=== PATIENT | female | born 1985 | race Caucasian/White ===

== ENCOUNTER 2020-03-30 10:49 | Outpatient (REF) | payer OTHER, SELFPAY ==
[2020-03-30 14:40] LABS: Anion Gap 12 (12-20); Blood Urea Nitrogen 13 mg/dL (9-16); Calcium 9.2 mg/dL (8.4-10.2); Carbon Dioxide 26 mmol/L (22-29); Chloride 106 mmol/L (96-108); Estimated Glomerular Filt Rate > 60; Glucose Random 72 mg/dL (60-115); Potassium 4.2 mmol/l (3.3-5.1); Sodium 140 mmol/L (135-145)
== END 2020-03-30 10:50 | disposition home or self-care (01) ==
LOC: HO.HMGCLDS 10:49
PROVIDERS: PCP Nurse Practitioner Family; Visit Provider Nurse Practitioner Family
DX: Z02.0 Encounter for examination for admission to educational institution (principal)
CPT/HCPCS: 80048; 86481

== ENCOUNTER 2020-04-05 11:22 | Outpatient (REF) | payer OTHER, SELFPAY | END 2020-04-05 11:23 | disposition home or self-care (01) | LOC: HO.LAB 11:22 | PROVIDERS: Visit Provider Nurse Practitioner Family | DX: Z11.1 Encounter for screening for respiratory tuberculosis (principal) | CPT/HCPCS: 86481 ==

== ENCOUNTER → 2020-04-19 08:43 | Outpatient (BNVA) | payer OTHER, SELFPAY | PROVIDERS: PCP Nurse Practitioner Family; Visit Provider Obstetrics & Gynecology | DX: Z76.89 Persons encountering health services in other specified circumstances (principal) ==

== ENCOUNTER 2020-09-11 08:11 | Outpatient (REF) | payer OTHER, SELFPAY ==
[2020-09-11 16:09] LABS: CT PCR NOT DETECTED (Not Detect.); NG PCR NOT DETECTED (Not Detect.)
[2020-09-12 09:23] LABS: BV Int Neg Control Negative (Negative); BV Int Pos Control Positive (Positive)
== END 2020-09-11 08:12 | disposition home or self-care (01) ==
LOC: HO.LAB 08:11
PROVIDERS: PCP Nurse Practitioner Family; Visit Provider Obstetrics & Gynecology
DX: Z30.09 Encounter for other general counseling and advice on contraception (principal); N76.0 Acute vaginitis
CPT/HCPCS: 87480; 87491; 87510; 87591; 87660

== ENCOUNTER 2020-09-27 14:50 | Outpatient (REF) | payer OTHER, SELFPAY | END 2020-09-27 14:51 | disposition home or self-care (01) | LOC: HO.LAB 14:50 | PROVIDERS: PCP Nurse Practitioner Family; Visit Provider Surgery | DX: L82.1 Other seborrheic keratosis (principal) | CPT/HCPCS: 11441; 11641; 88305 ==

== ENCOUNTER → 2020-10-16 14:36 | Outpatient (BNVA) | payer OTHER, SELFPAY | PROVIDERS: PCP Nurse Practitioner Family; Visit Provider Obstetrics & Gynecology ==

== ENCOUNTER 2020-11-02 09:21 | Outpatient (REF) | payer OTHER, SELFPAY ==
[2020-11-02 11:13] LABS: MANUAL DIFF FLAG NO
[2020-11-02 11:24] LABS: Basophils Percent Auto 0.6 % (0-2); Eosinophils Absolute Auto 0.1 X10*3/uL (0.0-0.4); Eosinophils Percent Auto 1.2 % (0-4); Hematocrit 39.4 % (37-47); Hemoglobin 13.2 g/dl (12.0-16.0); Imm Gran Abs Auto 0.01 X10*3/uL (0.00-0.03); Imm Gran Pct Auto 0.2 % (0.0-0.4); Lymphocytes Absolute Auto 1.7 X10*3/uL (1.2-4.9); Lymphocytes Percent Auto 33.6 % (20-40); Mean Corpuscular HGB Conc 33.5 g/dl (31.0-35.0); Mean Corpuscular Hemoglobin 30.6 pg (27.0-33.0); Mean Corpuscular Volume 91.4 fL (80-98); Mean Platelet Volume 10.9 fL (9.4-12.3); Monocytes Absolute Auto 0.4 X10*3/uL (0.1-1.2); Monocytes Percent Auto 7.1 % (2-11); Neutrophils Absolute Auto 2.8 X10*3/uL (2.0-8.3); Neutrophils Percent Auto 57.3 % (45-73); Platelet Count 364 X10*3/uL (160-400); Red Blood Count 4.31 X10*6/uL (4.20-5.50); Red Cell Distribution Width 12.4 % (11.0-16.0); White Blood Count 4.9 X10*3/uL (4.8-10.8)
[2020-11-02 12:00] LABS: TSH reflex Free T4 1.08 uIU/mL (0.32-4.0)
[2020-11-02 12:03] LABS: Alanine Aminotransferase 14 U/L (0-31); Albumin Level 4.2 g/dL (3.5-5.0); Alkaline Phosphatase 65 U/L (39-117); Anion Gap 10 (12-20); Aspartate Amino Transferase 13 U/L (5-31); Bilirubin Total 0.4 mg/dL (0.0-1.0); Blood Urea Nitrogen 13 mg/dL (9-16); Calcium 9.3 mg/dL (8.4-10.2); Carbon Dioxide 27 mmol/L (22-29); Chloride 107 mmol/L (96-108); Estimated Glomerular Filt Rate > 60; Glucose Fasting 83 mg/dL (60-99); Potassium 4.6 mmol/L (3.3-5.1); Sodium 139 mmol/L (135-145)
[2020-11-02 12:20] LABS: Folate 7.4 ng/mL (> or = 4.0); Vitamin B12 598 pg/mL (200-900)
[2020-11-06 12:22] LABS: Vitamin D 25-OH, D2 7 ng/mL; Vitamin D 25-OH, D3 19 ng/mL; Vitamin D 25-OH, Total 26 ng/mL (30-100)
== END 2020-11-02 09:22 | disposition home or self-care (01) ==
LOC: HO.HMGCLDS 09:21
PROVIDERS: PCP Nurse Practitioner Family; Visit Provider Hospitalist
DX: R20.2 Paresthesia of skin (principal)
CPT/HCPCS: 36415; 80053; 82306; 82607; 82746; 84443; 85025

== ENCOUNTER 2020-11-21 13:00 | Outpatient (REF) | payer OTHER, SELFPAY ==
--- NOTE | ~2020-11-21 | US_ITS ---
EXAMINATION: US ABDOMEN LIMITED CLINICAL INFORMATION: Localized swelling, mass and lump, trunk. COMPARISON: None TECHNIQUE: Real-time imaging of the left upper quadrant. FINDINGS: Limited sonogram of the superficial soft tissues of the left upper quadrant demonstrates a well-positioned vein lobule measuring 1.9 x 0.9 x 2.8 cm. No cystic or solid masses. No areas of airspace edema. No fluid collections. US/US abdomen limited IMPRESSION: Possible hernia versus lipoma in the left upper quadrant, consider further evaluation with CT of the abdomen.
== END 2020-11-21 13:01 | disposition home or self-care (01) ==
LOC: HO.US 13:00
PROVIDERS: Visit Provider Hospitalist
DX: R22.2 Localized swelling, mass and lump, trunk (principal)
CPT/HCPCS: 76705

== ENCOUNTER 2021-03-05 10:10 | Outpatient (REF) | payer OTHER, SELFPAY ==
[2021-03-05 11:33] LABS: Alanine Aminotransferase 11 U/L (0-31); Albumin Level 4.5 g/dL (3.5-5.0); Alkaline Phosphatase 70 U/L (39-117); Anion Gap 13 (12-20); Aspartate Amino Transferase 17 U/L (5-31); Bilirubin Total 0.9 mg/dL (0.0-1.0); Blood Urea Nitrogen 9 mg/dL (9-16); Calcium 9.7 mg/dL (8.4-10.2); Carbon Dioxide 23 mmol/L (22-29); Chloride 107 mmol/L (96-108); Cholesterol 175 mg/dL; Estimated Glomerular Filt Rate > 60; Glucose Fasting 91 mg/dL (60-99); HDL Cholesterol 53 mg/dL; LDL Cholesterol Calculated 112 mg/dl; Potassium 4.5 mmol/L (3.3-5.1); Sodium 138 mmol/L (135-145); Total Protein 7.4 g/dL (6.5-8.0); Triglycerides 51 mg/dL
[2021-03-05 12:00] LABS: TSH reflex Free T4 1.07 uIU/mL (0.32-4.0)
[2021-03-05 13:02] LABS: Appearance Urine CLEAR; Color Urine YELLOW; Glucose Urine UA NEG (NEG); Leukocyte Esterase Urine NEG (NEG); Nitrite Urine NEG (NEG); Urine Blood NEG (NEG); Urine Ketones NEG (NEG); Urine Protein NEG (NEG-TRACE)
[2021-03-08 16:51] LABS: TS Negative Control Passed; TS Panel A 0; TS Panel B 1; TS Positive Control Passed; TSpotTB Negative (SeeBelow)
== END 2021-03-05 10:11 | disposition home or self-care (01) ==
LOC: HO.LAB 10:10
PROVIDERS: Visit Provider Nurse Practitioner Family
DX: Z00.00 Encounter for general adult medical examination without abnormal findings (principal); Z11.1 Encounter for screening for respiratory tuberculosis
CPT/HCPCS: 36415; 80053; 80061; 81003; 84443; 86481

== ENCOUNTER 2021-03-26 07:55 | Outpatient (REF) | payer OTHER, SELFPAY ==
--- NOTE | ~2021-03-26 | CT_ITS ---
EXAMINATION: CT ABDOMEN AND PELVIS WITH CONTRAST CLINICAL INFORMATION: Localized swelling, mass or left upper quadrant. Question lipoma versus hernia. COMPARISON: Abdominal ultrasound November 2020 TECHNIQUE: Multidetector volumetric images were obtained from the superior aspect of the liver through the pubic symphysis following administration 85 mL of Omnipaque 350 intravenous contrast. Sagittal and coronal reformatted images were obtained on the technologist's workstation. Oral contrast: Yes This CT examination was performed using dose optimization techniques as appropriate, variously including the following: *Automated exposure control *Adjustment of mA and/or kV according to patient size (this includes techniques or standardized protocols for targeted exams where dose is matched to indication/reason for exam; i.e. extremities or head) *Use of iterative reconstruction technique DLP: 578 mGy-cm FINDINGS: LUNG BASES: The visualized lung bases are unremarkable. LIVER, GALLBLADDER, AND BILIARY TREE: The liver is normal in size, shape, and attenuation. There is a small 4 mm low-attenuation lesion high in the right lobe of the liver axial image 18 series 3. This is difficult to characterize due to small size but may represent a cyst. No biliary ductal dilatation is present. The gallbladder is unremarkable with no evidence of radiopaque gallstones, gallbladder wall thickening, or obvious pericholecystic inflammatory changes. PANCREAS: Unremarkable. SPLEEN: Unremarkable. ADRENAL GLANDS: Unremarkable. KIDNEYS AND URETERS: The kidneys are normal in size, shape, and attenuation. No hydronephrosis, hydroureter, or calculi seen. No perinephric stranding. BLADDER: Unremarkable. GASTROINTESTINAL TRACT: The small and large bowel are unremarkable. The appendix is not seen. ABDOMINAL WALL: No significant hernia is appreciated. No abdominal wall mass or fluid collection is seen. LYMPH NODES: Normal. VASCULAR: Unremarkable. PELVIC VISCERA: Unremarkable. OSSEOUS STRUCTURES: There is thoracolumbar scoliosis. CT/CT abdomen pelvis w con IMPRESSION: No abdominal wall mass or hernia is seen. Probable small liver cyst.
== END 2021-03-26 07:56 | disposition home or self-care (01) ==
LOC: HO.CT 07:55
PROVIDERS: Visit Provider Nurse Practitioner Family
DX: R19.02 Left upper quadrant abdominal swelling, mass and lump (principal); M41.85 Other forms of scoliosis, thoracolumbar region
CPT/HCPCS: 74177; Q9967

== ENCOUNTER → 2021-04-04 09:14 | Outpatient (REF) | payer OTHER, SELFPAY ==
--- NOTE | 2021-04-04 09:18 | HM_ITS ---
Conclusion: 1. Patient was monitored for total period of 3 days and 8 hours. 2. Baseline of normal sinus rhythm with average heart of 73 beats per minute 3. No significant bradycardia pauses noted 4. Total of 5 isolated PVCs occurred for very rare PVCs 5. No patient reported events MTDD
--- NOTE | 2021-04-04 09:18 | CA_ITS ---
Acquisition Time: 2021-04-04 09:19:44 Total Exercise Time: 00:09:15 Test Indications: CP Medications: SEE CHART Protocol: BERTHA Max HR: 179 BPM 96% of Pred: 186 BPM Max BP: 142/082 mmHG Max Work Load: 10.4 METS Exercise stress test with exercise 9 min 15 sec of Bertha protocol, without anginal symptoms, without arrythmia, with normotensive response to exercise, without EKG changes meeting criteria for ischemia. Test reviewed with Dr Ramachandran. Referred By: Ridge Saavedra Overread By: LAMINE GUTIERREZ
== END ==
LOC: HO.CARD 09:14
PROVIDERS: PCP Nurse Practitioner Family; Visit Provider Nurse Practitioner Family
DX: R07.89 Other chest pain (principal)
CPT/HCPCS: 93017; 93242

== ENCOUNTER 2022-02-11 15:59 | Outpatient (REF) | payer OTHER, SELFPAY | END 2022-02-11 16:00 | disposition home or self-care (01) | LOC: HO.LAB 15:59 | PROVIDERS: PCP Nurse Practitioner Family; Visit Provider Internal Medicine Gastroenterology | DX: K21.9 Gastro-esophageal reflux disease without esophagitis (principal) | CPT/HCPCS: 36415; 86003 ==

== ENCOUNTER 2022-02-20 14:35 | Outpatient (REF) | payer OTHER, SELFPAY ==
[2022-02-21 14:04] LABS: H Pylori Breath Test Negative (Negative)
== END 2022-02-20 14:36 | disposition home or self-care (01) ==
LOC: HO.LNP 14:35
PROVIDERS: Visit Provider Internal Medicine Gastroenterology
DX: K21.9 Gastro-esophageal reflux disease without esophagitis (principal); Z11.0 Encounter for screening for intestinal infectious diseases
CPT/HCPCS: 83013

== ENCOUNTER 2025-05-10 08:03 | Outpatient (REF) | payer OTHER, SELFPAY ==
[2025-05-10 10:22] LABS: MANUAL DIFF FLAG NO
[2025-05-10 10:26] LABS: Hematocrit 38.7 % (37.0-47.0); Hemoglobin 13.0 g/dl (12.0-16.0); Imm Gran Abs Auto 0.01 X10*3/uL (0.00-0.03); Imm Gran Pct Auto 0.2 % (0.0-0.4); Lymphocytes Absolute Auto 1.3 X10*3/uL (1.2-4.9); Mean Corpuscular HGB Conc 33.6 g/dl (31.0-35.0); Mean Corpuscular Hemoglobin 28.9 pg (27.0-33.0); Mean Corpuscular Volume 86.0 fL (80.0-98.0); NRBC Abs Auto 0.000 X10*3/uL (0.0-0.012); NRBC Pct Auto 0.0 /100WBC (0.0-0.2); Platelet Count 370 X10*3/uL (160-400); Red Blood Count 4.50 X10*6/uL (4.20-5.50); White Blood Count 4.9 X10*3/uL (4.8-10.8)
[2025-05-10 10:47] LABS: Alanine Aminotransferase 19 U/L (0-31); Albumin Level 4.4 g/dL (3.5-5.0); Alkaline Phosphatase 98 U/L (39-117); Anion Gap 9 (12-20); Aspartate Amino Transferase 25 U/L (5-31); Blood Urea Nitrogen 8 mg/dL (9-16); Calcium 8.9 mg/dL (8.4-10.2); Carbon Dioxide 24 mmol/L (22-29); Chloride 108 mmol/L (96-108); Estimated Glomerular Filt Rate > 60; Potassium 4.0 mmol/L (3.3-5.1); Sodium 137 mmol/L (135-145); Total Protein 7.5 g/dL (6.5-8.0)
== END 2025-05-10 08:04 | disposition home or self-care (01) ==
LOC: HO.HMGCLDS 08:03
PROVIDERS: PCP Nurse Practitioner Family; Visit Provider Physician Assistant Medical
DX: R07.9 Chest pain, unspecified (principal); F41.8 Other specified anxiety disorders; Z13.1 Encounter for screening for diabetes mellitus
CPT/HCPCS: 36415; 80053; 83036; 84443; 85025; 93005

== ENCOUNTER 2025-05-10 08:03 | Outpatient (AMB) | payer OTHER, SELFPAY ==
--- NOTE | 2025-05-10 08:12 | MHC.OFFWIV ---
Intake Vital Signs 05/10/25 08:13 Height 5 ft 6 in Weight 230 lb BMI 37.1 BP 156/98 H Blood Pressure Location Rt brachial Position Sitting Pulse 91 Pulse Source Pulse Oximeter Pulse Oximetry (%) 100 Oxygen Delivery Method Room Air Intake Visit Reasons: EP-chest disconfort Intake Note: Patient presents c/o chest pain for a while. Pain does radiate into her left arm at times. Patient states this has been going on for a long time. Patient Tobacco Use Status: Former Tobacco user Allergies No Known Allergies Allergy (Verified 05/10/25 08:16) HPI HPI Comments History of Present Illness Details History of Present Illness - The patient is a 39-year-old female presenting with chest pain. - The patient reports experiencing chest pain characterized by dullness, pressure, and squeezing sensations, sometimes radiating to the shoulder and neck. - The pain occurs randomly, irrespective of activity or rest, and is sometimes accompanied by a burning sensation. - The patient does have intermittent palpitations and it is not directly associated with the chest pain. - The patient describes feeling anxious, which she believes contributes to her symptoms. - She has not been treated for anxiety previously and reports significant stressors in her life, including work and single parenthood. - She was previously on Wellbutrin in the past but is no longer on it as she felt it wasn't working. - The patient has noted elevated blood pressure readings, with a recent measurement of 156/98 mmHg, though she has no formal diagnosis of hypertension. - She monitors her blood pressure at home, with readings typically around 130-140 mmHg. - The patient has experienced weight gain, which she attributes to lifestyle factors and stress. - She expresses concern about her risk factors for cardiovascular issues, despite normal EKG results. - She has not seen her PCP in a few years and is overdue for a physical. - She is very anxious that something is wrong with her. - She has no associated SOB, ARMENTA, numbness, tingling, leg swelling, calf pain, GRAHAM, dizziness, or weakness. Physical Exam General: Cooperative, healthy appearing, comfortable, no acute distress, tearful, and well developed Orientation: Patient oriented x3 Limitations: No limitations Head: Normal to inspection Eyes: Appearance normal, both eyes and all related structures. PERRLA, EOMI. Neck: Normal visual inspection and Yes full ROM. No thyromegaly noted. No nodules noted. Respiratory: Normal respiratory effort and able to speak in complete sentences. Clear to auscultation bilaterally. No w/r/r noted. Cardiovascular: Regular rate and rhythm. Normal S1 and S2. No m/r/g noted. GI: Normal to inspection. Soft to palpation and nontender Skin: No rashes or lesions noted Neuro: Patient oriented x3 Extremities: Normal to inspection. No edema noted. Patient was informed and verbally consented to the use of an ambient scribe for clinic note documentation during this visit. 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 Current occupational exposures/hazards: No Sexual orientation: Straight/Heterosexual Gender identity: Female Cognitive needs: No Hearing needs: No Vision needs: No Female Reproductive History Menstrual Age of Menarche: 13 Review of Systems Const All systems reviewed & are unremarkable except as noted in HPI and below Physical Exam Vital Signs: Last Vital Signs Pulse 91 05/10/25 08:13 BP 156/98 H 05/10/25 08:13 Pulse Ox 100 05/10/25 08:13 Oxygen Delivery Method Room Air 05/10/25 08:13 BMI result Body Mass Index 37.1 Results Reviewed Results Reviewed: Reviewed the EKG in the office Assessment & Plan Assessment & Plan (1) Chest pain: Code(s): R07.9 - Chest pain, unspecified Qualifiers: Chest pain type: unspecified Qualified Code(s): R07.9 - Chest pain, unspecified (2) Anxiety and depression: Code(s): F41.9 - Anxiety disorder, unspecified; F32.A - Depression, unspecified Plan Most likely arrhythmia vs electrolyte abnormality vs thyroid vs anxiety/depression plan - Plan includes ruling out cardiac causes with normal EKG results. - Consideration of anxiety as a contributing factor, with a trial of hydroxyzine for symptomatic relief. - Encourage lifestyle modifications to reduce stress, including potential weight management strategies. - Monitor blood pressure regularly at home and consider lifestyle changes to manage elevated readings. - Follow-up with primary care for further evaluation and management. Orders: Orders Comprehensive Met. Panel Today R07.9 - Chest pain, unspecified Hemoglobin A1c Today R07.9 - Chest pain, unspecified Complete Blood Count Auto Diff Today R07.9 - Chest pain, unspecified TSH reflex Free T4 Today R07.9 - Chest pain, unspecified Medications: New hydroxyzine HCl 25 mg PO Q6H 56 tabs 0RF as needed for anxiety 14 days Coding Level of Care Code Est Pt Level 4 (12173) Diagnoses Chest pain, unspecified type R07.9 Chest pain type: unspecified Anxiety and depression F41.9; F32.A
[2025-05-10 08:13] VITALS: BP 156/98; PULSE 91; O2SAT 100; BMI 37.1
== END 2025-05-10 09:01 | disposition home or self-care (01) ==
PROVIDERS: PCP Nurse Practitioner Family; Visit Provider Physician Assistant Medical
DX: R07.9 Chest pain, unspecified (principal); F41.9 Anxiety disorder, unspecified; F32.A Depression, unspecified

== ENCOUNTER 2025-06-21 09:15 | Outpatient (AMB) | payer OTHER, SELFPAY ==
[2025-06-21 09:27] VITALS: BP 150/92; PULSE 115; RESP 16; O2SAT 99; BMI 37.3
--- NOTE | 2025-06-21 09:27 | MHC.PC.OV ---
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 Surgical Required: No Allergies No Known Allergies Allergy (Verified 06/21/25 09:28) Medication List - Last Reconciled 06/21/25 by JOSE MANUEL HannahP- cyclobenzaprine 5 mg PO TID famotidine 20 mg PO DAILY hydroxyzine HCl 25 mg PO Q6H 14 days magnesium 200 mg PO DAILY metoprolol succinate ER 25 mg PO DAILY 30 days Tobacco use date assessed: 06/21/25 Dental Screening Dental Screen Date: 06/21/25 Did you have a dental visit in the last 12 months?: Yes Did you have a dental problem in the last 6 months where you did not have access to dental care?: No Was dental information given to patient?: Patient has dentist HPI PE HPI Details History of Present Illness The patient is a 39 year old female presenting for a physical exam. She reports recurrent chest discomfort, sometimes accompanied by numbness and tingling in her left upper extremity. 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 She denies any suicidal or homicidal ideation. Not interested in a therapist currently. BP also noted to be elevated, most likely to anxiety. Health Maintenance - The patient presented for a physical exam. 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 - Stress: She experiences significant stress and anxiety related to her work. Review of Systems - Cardiovascular: Reports chest discomfort on a regular basis. - Respiratory: Denies increased shortness of breath. - Gastrointestinal: Denies abdominal pain, blood in stool, constipation, and diarrhea. - Neurological: Reports numbness and tingling in the left upper extremity. - Psychiatric: Reports feeling very stressed and anxious. - Psychiatric: Denies suicidal ideation and homicidal ideation. Physical Exam General: Cooperative, healthy appearing, comfortable, no acute distress and well developed, although very anxious and in tears, obese Orientation: Patient oriented x3 Limitations: No limitations Head: Normal to inspection Ears: Hearing grossly normal bilaterally Nose: Normal external nose present Face and sinus: Normal facial exam Eyes: Appearance normal, both eyes and all related structures Neck: Normal visual inspection and Yes full ROM Respiratory: Normal respiratory effort and able to speak in complete sentences. Clear to auscultation bilaterally Cardiovascular: tachy, s1 s2 GI: Normal to inspection. Soft to palpation and nontender Skin: No rashes, cyst noted to mid upper forehead Neuro: Patient oriented x3 Extremities: Normal to inspection, although patient reports numbness and tingling in the left upper extremity Results Plan 1. Chest Discomfort The patient reports regular chest discomfort with associated numbness and tingling in the left upper extremity. While there is a definite anxiety component, a cardiac etiology will be evaluated. The plan includes an EKG today, a Holter monitor, and a stress test to rule out an acute process. 2. Anxiety The patient is very anxious, in tears, and stressed, which is manifesting with an elevated blood pressure and heart rate. This can be attributed (partially) to her busy work environment, life stressors (home life). She has been started on a low-dose beta-ted, metoprolol 12.5 mg daily for at least a week, with the option to increase to 25 mg. She does not want a therapist currently but knows she can reach out at any point. She will be followed up via telehealth. 3. Encounter for general adult medical examination with abnormal findings Z00.01 Discussion Notes I explained to the patient that while I believe there is a significant anxiety component to her symptoms, given her reports of chest discomfort and numbness, it is important to conduct a thorough cardiac workup. I informed her that we would proceed with an EKG today, followed by a Holter monitor and a stress test, to ensure there is no acute cardiac issue. We discussed managing her anxiety and its physical manifestations with a low dose of metoprolol, starting at 12.5 mg daily with the option to increase to 25 mg. I offered a referral for therapy, which she declined at this time, but she understands she can request one at any point. We will have a telehealth follow-up to monitor her progress. Patient Instructions - You will have an EKG done in the office today to check your heart. - We are ordering a Holter monitor and a stress test for a more detailed evaluation of your heart. - Please start taking metoprolol 12.5 mg (one-half of a 25 mg tablet) by mouth once daily for at least a week to help with your anxiety and fast heart rate. - If you wish, you may increase the dose to a full 25 mg tablet daily after one week. - While you do not want to see a therapist now, please know you can contact me anytime if you change your mind. - We will schedule a telehealth appointment to follow up on how you are doing. 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 1. Little interest or pleasure in doing things: not at all 2. Feeling down, depressed, or hopeless: several days 3. Trouble falling or staying asleep, or sleeping too much: not at all 4. Feeling tired or having little energy: several days 5. Poor appetite or overeating: not at all 6. Feeling bad about yourself - or that you are a failure or have let yourself or your family down: not at all 7. Trouble concentrating on things, such as reading the newspaper or watching television: not at all 8. Moving or speaking so slowly that other people could have noticed. Or the opposite - being so fidgety or restless that you have been moving around a lot more than usual: not at all 9. Thoughts that you would be better off or of hurting yourself in some way: not at all Total score: 2 Depression Screening Interpretation: Negative Depression Screening Done: Yes 22013 - PHQ-9 Billing: Yes Source: Developed by Drs. Robert Castrejon, Leslie Payan, Sarwat Schroeder and colleagues, with an educational drew from [email or web address]. Thrive Questionnaire Date Thrive assessed: 07/16/22 I am a: Patient What is your living situation today?: I have a steady place to live Within the past 12 months, did the food you bought not last and you didn't have the money to get more?: Never true Within the past 12 months, did you worry whether your food would run out before you got money to buy more?: Never true Do you have trouble paying for medicines?: No Do you have trouble getting transportation to medical appointments?: No Do you have trouble paying your heating and electricity bill?: No Do you have trouble taking care of your child, family member or friend?: No Do you have trouble with day-to-day activities such as bathing, preparing meals, shopping, managing finances, etc.?: No Are you currently unemployed and looking for a job?: No Are you interested in more education?: No Please select the resources that you would like help with: None Currently or been in a relationship where the following occur: No concerns reported THRIVE Score: 0 AUDIT C Alcohol Use Questionnaire (AUDIT-C) 1. How often do you have a drink containing alcohol?: Monthly or less 2. How many drinks containing alcohol do you have on a typical day when you are drinking?: 1 or 2 3. How often do you have six or more drinks on one occasion?: Never Total Score: 1 FRIEDA-7 AMB Questionnaire FRIEDA-7 Date FRIEDA - 7 assessed: 07/16/22 Feeling nervous, anxious, or on edge: 1 = Several days Not being able to stop or control worryin = Several days Worrying too much about different things: 1 = Several days Trouble relaxin = Several days Being so restless that it is hard to sit still: 0 = Not at all Becoming easily annoyed or irritable: 1 = Several days Feeling afraid as if something awful might happen: 1 = Several days Total FRIEDA-7 score (0-4 normal; 5-9 mild; 10-14 moderate; 15-21 severe): 6 Source: Developed by Drs. Robert Castrejon, Leslie Payan, Sarwat Schroeder and colleagues, with an educational drew from [email or web address]. FRIEDA-7 Assessment Billing FRIEDA-7 Assessment Tool: FRIEDA-7 Assessment 73358 Physical exam (Primary Care) Vital Signs: Last Vital Signs Pulse 115 H 06/21/25 09:27 Resp 16 06/21/25 09:27 BP 150/92 H 06/21/25 09:27 Pulse Ox 99 06/21/25 09:27 Oxygen Delivery Method Room Air 06/21/25 09:27 BMI result Body Mass Index 37.3 Tobacco/Smoking Status: Tobacco use Status Tobacco use date assessed 06/21/25 06/21/25 09:32 Patient Tobacco Use Status Former Tobacco user 06/21/25 09:32 e-Cigarette/Vaping Use Never Used 06/21/25 09:32 PHQ-9: PHQ-9 Score PHQ-9: Total score 2 06/21/25 09:32 Depression Screening Interpretation: Negative Thrive Assessment: Date of Thrive Assessment Date Thrive assessed 07/16/22 06/21/25 09:32 Currently or been in a relationship where the following occur: No concerns reported Coding Level of Care Code Est Pt Level 3 (59843) Est Pt Prev Care 18-39y(69271) Diagnoses Physical exam Z00.00 Chest discomfort R07.89 Dermoid cyst of forehead D23.39 Tachycardia R00.0 Anxiety F41.9 Additional Codes FRIEDA-7 Assessment Billing - FRIEDA-7 Assessment Tool: FRIEDA-7 Assessment 54597 ([id number]) PHQ-9 - 45184 - PHQ-9 Billing: Yes ([id number]) Assessment & Plan Assessment & Plan (1) Physical exam: Code(s): Z00.00 - Encounter for general adult medical examination without abnormal findings Category: Medical (2) Chest discomfort: Code(s): R07.89 - Other chest pain Category: Medical (3) Dermoid cyst of forehead: Code(s): D23.39 - Other benign neoplasm of skin of other parts of face Category: Medical (4) Tachycardia: Code(s): R00.0 - Tachycardia, unspecified Category: Medical (5) Anxiety: Code(s): F41.9 - Anxiety disorder, unspecified Category: Medical Plan . Orders: Orders TSH reflex Free T4 Today Z00.00 - Encounter for general adult medical examination without abnormal findings UA CC w/rflx Micro + Cult Today Z00.00 - Encounter for general adult medical examination without abnormal findings CA stress test Today R07.89 - Other chest pain NM cardiolite stress test Today R07.89 - Other chest pain Complete Blood Count Auto Diff Today Z00.00 - Encounter for general adult medical examination without abnormal findings Comprehensive [place]. Panel Fast Today Z00.00 - Encounter for general adult medical examination without abnormal findings Lipid Panel Today Z00.00 - Encounter for general adult medical examination without abnormal findings ECG 5 day holter monitor Today R07.89 - Other chest pain AMB EKG-In Office Today R07.89 - Other chest pain Referrals Dermatology Referral D23.39 - Other benign neoplasm of skin of other parts of face Medications: New metoprolol succinate ER 25 mg PO DAILY 30 tabs 2RF 30 days
== END 2025-06-21 10:24 | disposition home or self-care (01) ==
LOC: HO.HMCC 09:16
PROVIDERS: PCP Nurse Practitioner Family; Visit Provider Nurse Practitioner Family
DX: Z00.01 Encounter for general adult medical examination with abnormal findings (principal); R07.89 Other chest pain; D23.39 Other benign neoplasm of skin of other parts of face; R00.0 Tachycardia, unspecified; F41.9 Anxiety disorder, unspecified

== ENCOUNTER 2025-06-21 09:15 | Outpatient (REF) | payer OTHER, SELFPAY ==
[2025-06-21 14:09] LABS: Appearance Urine Clear; Glucose Urine UA Negative (Negative); PH 6.5 (5.0-9.0); Specific Gravity - Urine <= 1.005 (1.005-1.025)
[2025-06-21 14:18] LABS: MANUAL DIFF FLAG NO
[2025-06-21 14:26] LABS: Hematocrit 41.1 % (37.0-47.0); Hemoglobin 13.5 g/dl (12.0-16.0); Imm Gran Abs Auto 0.01 X10*3/uL (0.00-0.03); Imm Gran Pct Auto 0.2 % (0.0-0.4); Lymphocytes Absolute Auto 1.6 X10*3/uL (1.2-4.9); Mean Corpuscular HGB Conc 32.8 g/dl (31.0-35.0); Mean Corpuscular Hemoglobin 28.3 pg (27.0-33.0); Mean Corpuscular Volume 86.2 fL (80.0-98.0); NRBC Abs Auto 0.000 X10*3/uL (0.0-0.012); NRBC Pct Auto 0.0 /100WBC (0.0-0.2); Platelet Count 367 X10*3/uL (160-400); Red Blood Count 4.77 X10*6/uL (4.20-5.50); White Blood Count 5.9 X10*3/uL (4.8-10.8)
[2025-06-21 14:55] LABS: Alanine Aminotransferase 31 U/L (0-31); Albumin Level 4.3 g/dL (3.5-5.0); Alkaline Phosphatase 95 U/L (39-117); Anion Gap 12 (12-20); Aspartate Amino Transferase 26 U/L (5-31); Blood Urea Nitrogen 9 mg/dL (9-16); Calcium 9.2 mg/dL (8.4-10.2); Carbon Dioxide 22 mmol/L (22-29); Chloride 109 mmol/L (96-108); Cholesterol 176 mg/dL (<200); Estimated Glomerular Filt Rate > 60; HDL Cholesterol 51 mg/dL (>40); Potassium 4.4 mmol/L (3.3-5.1); Sodium 139 mmol/L (135-145); Total Protein 7.6 g/dL (6.5-8.0); Triglycerides 88 mg/dL (<150)
== END 2025-06-21 09:16 | disposition home or self-care (01) ==
LOC: HO.HMGCLDS 09:15
PROVIDERS: PCP Nurse Practitioner Family; Visit Provider Nurse Practitioner Family
DX: Z00.00 Encounter for general adult medical examination without abnormal findings (principal); R07.89 Other chest pain; D23.39 Other benign neoplasm of skin of other parts of face; R00.0 Tachycardia, unspecified; F41.9 Anxiety disorder, unspecified; R10.9 Unspecified abdominal pain
CPT/HCPCS: 36415; 80053; 80061; 81003; 84443; 85025; 93005; 96127